=== PATIENT | female | born 1970 | race African-American/Black ===

== ENCOUNTER 2017-01-30 10:24 | Emergency (ER) | payer SELFPAY ==
--- NOTE | 2017-01-30 10:37 | ER Document Report ---
ED Medical Screen (RME) - General Stated Complaint: LEFT SIDE FLANK PAIN Notes: She complains of left-sided abdominal pain for several weeks. Does have nausea , but denies vomiting or diarrhea. No fever. Patient states she has had the same pain before and was worked up by her doctor, with blood work being normal. Pt is diabetic 1, states sugar has been high. I have greeted and performed a rapid initial assessment of this patient. A comprehensive ED assessment and evaluation of the patient, analysis of test results and completion of the medical decision making process will be conducted by additional ED providers. - Related Data Allergies/Adverse Reactions: aspirin Allergy (Verified 01/30/17 10:35) Physical Exam - Vital signs Vitals: Temp Pulse Resp BP Pulse Ox 98.3 F 73 16 140/83 H 98 01/30/17 10:01/30/17 10:01/30/17 10:01/30/17 10:01/30/17 10:29 - Abdominal Bowel sounds: Normal Tenderness: Tender - left side abdomen Course - Vital Signs Vital signs: Temp Pulse Resp BP Pulse Ox 98.3 F 73 16 140/83 H 98 01/30/17 10:29 01/30/17 10:29 01/30/17 10:29 01/30/17 10:29 01/30/17 10:29
[2017-01-30 11:11] LABS: ABSOLUTE BASOPHILS # (AUTO) 0.1 10^3/uL (0.0-0.2); ABSOLUTE EOSINOPHILS # (AUTO) 0.1 10^3/uL (0.0-0.6); ABSOLUTE LYMPHOCYTES (AUTO) 1.7 10^3/uL (0.5-4.7); ABSOLUTE MONOCYTES (AUTO) 0.6 10^3/uL (0.1-1.4); ABSOLUTE NEUT (AUTO) 3.9 10^3/uL (1.7-8.2); EOSINOPHILS % (AUTO) 1.7 % (0-6); HEMOGLOBIN 12.4 g/dL (12.0-15.5); HGB HCT DIFFERENCE 0.2; LYMPHOCYTES % (AUTO) 26.9 % (13-45); MEAN CORPUSCULAR HEMOGLOBIN 26.6 pg (27.0-33.4); MEAN CORPUSCULAR HGB CONC 33.4 g/dL (32.0-36.0); MEAN CORPUSCULAR VOLUME 80 fl (80-97); MONOCYTES % (AUTO) 8.9 % (3-13); RED BLOOD COUNT 4.64 10^6/uL (3.72-5.28); RED CELL DISTRIBUTION WIDTH 13.4 % (11.5-14.0); SEGMENTED NEUTROPHILS % (AUTO) 61.5 % (42-78); WHITE BLOOD COUNT 6.3 10^3/uL (4.0-10.5)
[2017-01-30 11:20] LABS: APPEARANCE,URINE CLOUDY; BILIRUBIN,URINE NEGATIVE (NEGATIVE); GLUCOSE, URINE NEGATIVE (NEGATIVE); KETONES,URINE NEGATIVE (NEGATIVE); LEUKOCYTE ESTERASE,URINE LARGE (NEGATIVE); NITRITE,URINE NEGATIVE (NEGATIVE); PROTEIN,URINE NEGATIVE (NEGATIVE); URINE SPECIFIC GRAVITY 1.021
[2017-01-30 11:31] LABS: ALANINE AMINOTRANSFERASE 32 U/L (9-52); ALBUMIN 4.1 g/dL (3.5-5.0); ALKALINE PHOSPHATASE 88 U/L (38-126); ANION GAP 12 (5-19); ASPARTATE AMINO TRANSFERASE 18 U/L (14-36); BILIRUBIN,DIRECT 0.1 mg/dL (0.0-0.4); BILIRUBIN,TOTAL 0.4 mg/dL (0.2-1.3); BLOOD UREA NITROGEN 12 mg/dL (7-20); CALCIUM 9.6 mg/dL (8.4-10.2); CARBON DIOXIDE 29 mmol/L (22-30); CHLORIDE 103 mmol/L (98-107); CREATININE RESULT 0.74 mg/dL (0.52-1.25); GLUCOSE 190 mg/dL (75-110); LIPASE 143.9 U/L (23-300); POTASSIUM 4.5 mmol/L (3.6-5.0); SODIUM 143.6 mmol/L (137-145)
[2017-01-30] MEDS ORDERED: NORMAL SALINE 1000 ML 1,000 ML IV ONE (11:39)
[2017-01-30 12:06] LABS: ADD ON TESTING BLD IN LAB ACKNOWLEDGE
[2017-01-30] MEDS ORDERED: MAG HYDROX/AL HYDROX/SIMETH SUSP 30 ML UDCUP PO ONE (12:18)
[2017-01-30] MEDS ORDERED: LIDOCAINE 2% VISCOUS SOLN 20 ML UDCUP PO ONE (12:18)
[2017-01-30 12:32] LABS: CREATINE KINASE 104 U/L (30-135)
--- NOTE | 2017-01-30 13:09 | EKG REPORT ---
SEVERITY:- ABNORMAL ECG - SINUS RHYTHM LEFT VENTRICULAR HYPERTROPHY BORDERLINE T ABNORMALITIES, INFERIOR LEADS : Confirmed by: Percy Borrego MD 30-Jan-2017 13:08:32
[2017-01-30] MEDS ORDERED: ONDANSETRON HCL INJ/PF 4 MG/2 ML SDV IV ONE (13:26)
[2017-01-30] MEDS ORDERED: CEFTRIAXONE RTU 1 GM/D5W 50 ML IV ONE (13:27)
--- NOTE | 2017-01-30 13:27 | ER Document Report ---
ED GI/ - General Chief Complaint: Abdominal Pain Stated Complaint: LEFT SIDE FLANK PAIN Mode of Arrival: Ambulatory Information source: Patient Notes: Patient presents reporting a 3 week history of left-sided abdominal pain that radiates to the left flank area. Patient does report some nausea. Patient states that when she lies down at night sometimes she will have epigastric pain that radiates up into her chest. Patient states that when she sits up, her epigastric and chest pain symptoms resolved. Patient denies any urinary symptoms. Patient states that her blood sugar has been at times elevated and other times normal. Patient states [place] and has been having difficulty sticking to her diabetic diet due to lack of restaurant options in this area. Patient denies any cough or shortness of breath. TRAVEL OUTSIDE OF THE [place] IN LAST 30 DAYS: No - HPI Patient complains to provider of: Abdominal pain, Flank pain. No: , Vomiting Onset: Other - 3 weeks Timing/Duration: Persistent Pain Level: 3 Location: Left flank, Other - Left side of abdomen Associated symptoms: Nausea, Urinary frequency. denies: Diarrhea, Dysuria, Fever, Loss of appetite, Urinary hesitancy, Urinary retention, Urinary urgency, Vomiting Exacerbated by: Denies Relieved by: Denies Similar symptoms previously: Yes Recently seen / treated by doctor: No - Related Data Allergies/Adverse Reactions: aspirin Allergy (Verified 01/30/17 10:35) Past Medical History - General Information source: Patient Last Menstrual Period: hysterectomy - Social History Smoking Status: Never Smoker Chew tobacco use (# tins/day): No Frequency of alcohol use: None Drug Abuse: None Lives with: Family Family History: Reviewed & Not Pertinent Patient has suicidal ideation: No Patient has homicidal ideation: No - Past Medical History Cardiac Medical History: Reports: Hx Hypertension Pulmonary Medical History: Reports: Hx Asthma Endocrine Medical History: Reports: Hx Diabetes Mellitus Type 1 Renal/ Medical History: Reports: Hx Kidney Stones. Denies: Hx Peritoneal Dialysis Past Surgical History: Reports: Hx Hysterectomy, Hx Tonsillectomy - Immunizations Hx Diphtheria, Pertussis, Tetanus Vaccination: Yes Review of Systems - Review of Systems Constitutional: No symptoms reported. denies: Fever, Recent illness EENT: No symptoms reported Cardiovascular: Chest pain. denies: Palpitations, Syncope, Dizziness Respiratory: No symptoms reported. denies: Cough, Short of breath Gastrointestinal: Abdominal pain, Nausea. denies: Diarrhea, Vomiting Genitourinary: Frequency, Flank pain. denies: Burning, Dysuria Female Genitourinary: No symptoms reported. denies: Vaginal discharge, Vaginal bleeding Musculoskeletal: Back pain - Left flank area Skin: No symptoms reported Hematologic/Lymphatic: No symptoms reported Neurological/Psychological: No symptoms reported Physical Exam - Vital signs Vitals: Temp Pulse Resp BP Pulse Ox 98.3 F 73 16 140/83 H 98 01/30/17 10:29 01/30/17 10:29 01/30/17 10:29 01/30/17 10:29 01/30/17 10:29 - General General appearance: Appears well, Alert In distress: None Notes: PHYSICAL EXAMINATION: GENERAL: Well-appearing and in no acute distress. Obese. HEAD: Atraumatic, normocephalic. EYES: sclera anicteric, conjunctiva are normal. ENT: nares patent. Moist mucous membranes. NECK: Normal range of motion, supple without lymphadenopathy LUNGS: CTAB and equal. No wheezes rales or rhonchi. HEART: Regular rate and rhythm without murmurs ABDOMEN: Soft, left lower quadrant tenderness, normal bowel sounds, no guarding. EXTREMITIES: Normal range of motion, no pitting edema. No cyanosis. BACK: No midline tenderness, no step-off or deformity. Left CVA tenderness NEUROLOGICAL: Cranial nerves grossly intact. Normal speech. Normal gait. PSYCH: Normal mood, normal affect. SKIN: Warm, Dry, normal turgor, no rashes or lesions noted Course - Re-evaluation Re-evalutation: 01/30/17 11:[address] Rankin regarding patient presentation. Agrees with plan for CT imaging to rule out abdominal pathology 01/30/17 13:26 Patient reports that abdominal pain improves after GI cocktail. Patient does complain of some nausea now. 01/30/17 16:11 Patient's abdomen soft, nontoxic. Patient tolerating po's without pain or vomiting at present. Consulted with Dr. Rankin, discussed results of patient's diagnostic studies. EKG reviewed. Recommends outpatient follow-up with dials inspector. Discussed plan of care with patient, patient verbalized understanding and agrees with plan of care. Patient encouraged to follow-up with dials inspector for further evaluation. Patient also advised that we will place her on some medications to help with what I suspect to be some reflux symptoms as well. - Vital Signs Vital signs: Temp Pulse Resp BP Pulse Ox 98.8 F 68 18 131/77 H 98 01/30/17 16:33 01/30/17 16:33 01/30/17 16:33 01/30/17 16:33 01/30/17 16:33 - Laboratory Result Diagrams: 01/30/17 10:45 01/30/17 10:45 Laboratory results interpreted by me: 01/30/17 01/30/17 01/30/17 10:45 10:45 10:45 MCH 26.6 L Glucose 190 H Urine Urobilinogen 4.0 H Ur Leukocyte Esterase LARGE H 01/30/17 16:13 Labs- Entire Visit 01/30/17 01/30/17 01/30/17 10:45 10:45 10:45 WBC 6.3 RBC 4.64 Hgb 12.4 Hct 37.0 MCV 80 MCH 26.6 L MCHC 33.4 RDW 13.4 Plt Count 341 Seg Neutrophils % 61.5 Lymphocytes % 26.9 Monocytes % 8.9 Eosinophils % 1.7 Basophils % 1.0 Absolute Neutrophils 3.9 Absolute Lymphocytes 1.7 Absolute Monocytes 0.6 Absolute Eosinophils 0.1 Absolute Basophils 0.1 Sodium 143.6 Potassium 4.5 Chloride 103 Carbon Dioxide 29 Anion Gap 12 BUN 12 Creatinine 0.74 Est GFR ( Amer) > 60 Est GFR (Non-Af Amer) > 60 Glucose 190 H Calcium 9.6 Total Bilirubin 0.4 Direct Bilirubin 0.1 Indirect Bilirubin Not Reportable Neonat Total Bilirubin Not Reportable AST 18 ALT 32 Alkaline Phosphatase 88 Creatine Kinase CK-MB (CK-2) Troponin I Total Protein 7.0 Albumin 4.1 Lipase 143.9 Urine Color YELLOW Urine Appearance CLOUDY Urine pH 6.0 Ur Specific [place] 1.021 Urine Protein NEGATIVE Urine Glucose (UA) NEGATIVE Urine Ketones NEGATIVE Urine Blood NEGATIVE Urine Nitrite NEGATIVE Urine Bilirubin NEGATIVE Urine Urobilinogen 4.0 H Ur Leukocyte Esterase LARGE H Urine WBC (Auto) 15 Urine RBC (Auto) 6 Urine Bacteria (Auto) TRACE Squamous Epi Cells Auto 22 Urine Mucus (Auto) RARE Urine Ascorbic Acid NEGATIVE 01/30/17 01/30/17 10:45 14:59 WBC RBC Hgb Hct MCV MCH MCHC RDW Plt Count Seg Neutrophils % Lymphocytes % Monocytes % Eosinophils % Basophils % Absolute Neutrophils Absolute Lymphocytes Absolute Monocytes Absolute Eosinophils Absolute Basophils Sodium Potassium Chloride Carbon Dioxide Anion Gap BUN Creatinine Est GFR ( Amer) Est GFR (Non-Af Amer) Glucose Calcium Total Bilirubin Direct Bilirubin Indirect Bilirubin Neonat Total Bilirubin AST ALT Alkaline Phosphatase Creatine Kinase 104 CK-MB (CK-2) 0.35 Troponin I < 0.012 Total Protein Albumin Lipase Urine Color Urine Appearance Urine pH Ur Specific [place] Urine Protein Urine Glucose (UA) Urine Ketones Urine Blood Urine Nitrite Urine Bilirubin Urine Urobilinogen Ur Leukocyte Esterase Urine WBC (Auto) Urine RBC (Auto) Urine Bacteria (Auto) Squamous Epi Cells Auto Urine Mucus (Auto) Urine Ascorbic Acid 01/30/17 17:50 - Diagnostic Test Radiology reviewed: Reports reviewed Discharge - Discharge Clinical Impression: Elevated blood pressure reading Abdominal pain Qualifiers: Abdominal location: unspecified location Qualified Code(s): R10.9 - Unspecified abdominal pain UTI (urinary tract infection) Qualifiers: Urinary tract infection type: site unspecified Hematuria presence: without hematuria Qualified Code(s): N39.0 - Urinary tract infection, site not specified Condition: Stable Disposition: HOME, SELF-CARE Instructions: Abdominal Pain ([facility]), Urinary Tract Infection ([facility]), Cephalexin ( [facility]), Reflux Disease (GERD) ([facility]) Additional Instructions: Return immediately for any new or worsening symptoms Followup with your primary care provider, call tomorrow to make a followup appointment Follow up with dials inspector for further evaluation, call for an appointment Your blood pressure was mildly elevated today, recheck with primary doctor to have this reevaluated in 2 days. Prescriptions: Cephalexin Monohydrate [Keflex 500 mg Capsule] 500 mg PO BID 5 Days Omeprazole Magnesium [Prilosec Otc] 20 mg PO DAILY #15 tablet. Sucralfate [Carafate 1 gm Tablet] 1 gm PO ACHS #60 tablet Forms: Elevated Blood Pressure Referrals: GLORIA SALAS MD [ACTIVE STAFF] - Follow up in 3-5 days
[2017-01-30 15:32] LABS: CREATINE KINASE MB 0.35 ng/mL (<4.55)
[2017-01-30 15:33] LABS: TROPONIN I < 0.012 ng/mL
[2017-01-30] MEDS ORDERED: IPRATROPIUM/ALBUTEROL 0.5-2.5 MG/3 ML AMPUL NEB ONE (15:48)
[2017-01-30] MEDS ORDERED: RACEPINEPHRINE HCL 2.25% NEB 0.5 ML AMPUL NEB ONE (15:49)
[2017-01-30 16:36] VITALS: BP 131/77
== END 2017-01-30 16:36 | disposition home or self-care (01) ==
LOC: ER 10:24
DX: I10 Essential (primary) hypertension (principal); R10.9 Unspecified abdominal pain; N39.0 Urinary tract infection, site not specified; R11.0 Nausea; E10.9 Type 1 diabetes mellitus without complications; Z88.6 Allergy status to analgesic agent; Z90.710 Acquired absence of both cervix and uterus; Z87.442 Personal history of urinary calculi
CPT/HCPCS: 93005; 99284; 96375; 96365; 36415; 82553; 82550; 83690; 85025; 80053; 81001; 84484; 71020; 76380; 93010; J3490; J2405; J7030; J0696

== ENCOUNTER 2017-12-29 17:11 | Emergency (ER) | payer MEDICAID ==
[2017-12-29] MEDS ORDERED: HYDROCHLOROTHIAZIDE 25 MG TABLET PO ONE (19:12)
[2017-12-29] MEDS ORDERED: LISINOPRIL 10 MG TABLET PO ONE (19:12)
[2017-12-29] MEDS ORDERED: INSULIN GLARGINE,HUM.REC.ANLOG 1,000 UNIT/10 ML UNIT SUBCUT ONE (19:16)
--- NOTE | 2017-12-29 19:17 | ER Document Report ---
ED Medical Screen (RME) - General Chief Complaint: High Blood Sugar Stated Complaint: BLOOD SUGAR PROBLEM Time Seen by Provider: 12/29/17 19:09 Mode of Arrival: Ambulatory Information source: Patient TRAVEL OUTSIDE OF THE [place] IN LAST 30 DAYS: No - HPI Onset: Last week Onset/Duration: Gradual Context: Patient is apparently visiting in [place] from her home in [place], has been here for about a month. She states that she ran out of all her medications 5 days ago and has had none since. She did call someone in [place] to send her her medications by mail, they were supposedly mailed 3 days ago but patient has not received them yet. She admits to increased thirst and increased urination. She also complains of a mild headache. She denies any recent acute illness. Quality of pain: No pain Severity: Moderate Associated Symptoms: Headache, Other - INCREASED THIRST Exacerbated by: Denies Relieved by: Denies Similar symptoms previously: Yes - NOT RECENT Recently seen / treated by doctor: No - Related Data Smoking: Non-smoker Frequency of alcohol use: None Drug Abuse: None Allergies/Adverse Reactions: aspirin Allergy (Verified 12/29/17 17:12) Past Medical History - General Information source: Patient - Social History Cigarette use (# per day): No Frequency of alcohol use: None Drug Abuse: None Lives with: Family Family history: None - Past Medical History Cardiac Medical History: Reports: Hx Hypertension Pulmonary Medical History: Reports: Hx Asthma EENT Medical History: Reports: None Neurological Medical History: Reports: None Endocrine Medical History: Reports: Hx Diabetes Mellitus Type 1, Hx Diabetes Mellitus Type 2 Renal/ Medical History: Reports: Hx Kidney Stones. Denies: Hx Peritoneal Dialysis Malignancy Medical History: Reports: None GI Medical History: Reports: None Psychiatric Medical History: Reports: None Past Surgical History: Reports: Hx Hysterectomy, Hx Tonsillectomy - Immunizations Hx Diphtheria, Pertussis, Tetanus Vaccination: Yes Review of Systems - Review of Systems Constitutional: No symptoms reported. denies: Chills, Fever EENT: No symptoms reported Cardiovascular: No symptoms reported Respiratory: No symptoms reported Gastrointestinal: No symptoms reported Genitourinary: Frequency Female Genitourinary: No symptoms reported Musculoskeletal: No symptoms reported Skin: No symptoms reported Neurological/Psychological: Headaches Physical Exam - Vital signs Vitals: Temp Pulse Resp BP Pulse Ox 98.8 F 68 18 161/88 H 98 02/17/18 17:19 18 17:19 12/29/17 17:19 12/29/17 17:19 12/29/17 17:19 Interpretation: Hypertensive. No: Tachycardic, Tachypneic, Febrile - General General appearance: Appears well, Alert In distress: None - HEENT Head: Normocephalic Eyes: Normal Conjunctiva: Normal Ears: Normal Nasal: Normal Mouth/Lips: Normal Mucous membranes: Normal - Respiratory Respiratory status: No respiratory distress - Cardiovascular Rhythm: Regular - Abdominal Inspection: Normal, Obese - Extremities General upper extremity: Normal inspection General lower extremity: Normal inspection. No: Edema - Neurological Neuro grossly intact: Yes Cognition: Normal Orientation: AAOx4 - Psychological Associated symptoms: Normal affect, Normal mood - Skin Skin Temperature: Warm Skin Moisture: Dry Skin Color: Normal Skin Turgor: Elastic Course - Vital Signs Vital signs: Temp Pulse Resp BP Pulse Ox 98.8 F 68 18 161/88 H 98 12/29/17 17:19 12/29/17 17:19 12/29/17 17:19 12/29/17 17:19 12/29/17 17:19 - Laboratory Laboratory results interpreted by me: 12/29/17 18:30 POC Glucose 369 H
[2017-12-29] MEDS ORDERED: LOSARTAN POTASSIUM 50 MG TABLET PO ONE (19:20)
[2017-12-29 21:29] LABS: ABSOLUTE BASOPHILS # (AUTO) 0.1 10^3/uL (0.0-0.2); ABSOLUTE EOSINOPHILS # (AUTO) 0.1 10^3/uL (0.0-0.6); ABSOLUTE LYMPHOCYTES (AUTO) 2.4 10^3/uL (0.5-4.7); ABSOLUTE MONOCYTES (AUTO) 0.5 10^3/uL (0.1-1.4); ABSOLUTE NEUT (AUTO) 4.8 10^3/uL (1.7-8.2); EOSINOPHILS % (AUTO) 0.7 % (0-6); HEMATOCRIT 39.3 % (36.0-47.0); HEMOGLOBIN 13.3 g/dL (12.0-15.5); LYMPHOCYTES % (AUTO) 30.7 % (13-45); MEAN CORPUSCULAR HEMOGLOBIN 26.8 pg (27.0-33.4); MEAN CORPUSCULAR HGB CONC 33.8 g/dL (32.0-36.0); MEAN CORPUSCULAR VOLUME 79 fl (80-97); MONOCYTES % (AUTO) 6.7 % (3-13); PLATELET COUNT 354 10^3/uL (150-450); RED BLOOD COUNT 4.95 10^6/uL (3.72-5.28); RED CELL DISTRIBUTION WIDTH 13.6 % (11.5-14.0); SEGMENTED NEUTROPHILS % (AUTO) 60.9 % (42-78); TOTAL CELLS COUNTED % (AUTO) 100 %; WHITE BLOOD COUNT 7.9 10^3/uL (4.0-10.5)
--- NOTE | 2017-12-29 21:30 | ER Document Report ---
ED General - General Chief Complaint: High Blood Sugar Stated Complaint: BLOOD SUGAR PROBLEM Time Seen by Provider: 12/29/17 19:09 Mode of Arrival: Ambulatory Information source: Patient TRAVEL OUTSIDE OF THE [place] IN LAST 30 DAYS: No - HPI Notes: 47-year-old lady with past medical history of diabetes as well as hypertension who presented today for evaluation of hyperglycemia. According to patient she ran out of her insulin medications. Patient takes 60 units of glargine at night. Patient is here visiting from [place]. Patient noted to have blood glucose of 350 in triage. Patient denies any nausea, vomiting, abdominal pain, chest pain or shortness of breath. Patient was given 60 units of glargine in triage. - Related Data Allergies/Adverse Reactions: aspirin Allergy (Verified 12/29/17 17:12) Past Medical History - General Information source: Patient - Social History Smoking Status: Never Smoker Cigarette use (# per day): No Frequency of alcohol use: None Drug Abuse: None Lives with: Family Family History: Reviewed & Not Pertinent Patient has suicidal ideation: No Patient has homicidal ideation: No - Past Medical History Cardiac Medical History: Reports: Hx Hypertension Pulmonary Medical History: Reports: Hx Asthma EENT Medical History: Reports: None Neurological Medical History: Reports: None Endocrine Medical History: Reports: Hx Diabetes Mellitus Type 1, Hx Diabetes Mellitus Type 2 Renal/ Medical History: Reports: Hx Kidney Stones. Denies: Hx Peritoneal Dialysis Malignancy Medical History: Reports: None GI Medical History: Reports: None Psychiatric Medical History: Reports: None Past Surgical History: Reports: Hx Hysterectomy, Hx Tonsillectomy - Immunizations Hx Diphtheria, Pertussis, Tetanus Vaccination: Yes Review of Systems - Review of Systems Notes: REVIEW OF SYSTEMS: CONSTITUTIONAL: -fevers, -chills EENT: -eye pain, -difficulty swallowing, -nasal congestion CARDIOVASCULAR: -chest pain, -syncope. RESPIRATORY: -cough, -SOB GASTROINTESTINAL: -abdominal pain, -nausea, -vomiting, -diarrhea GENITOURINARY: -dysuria, -hematuria MUSCULOSKELETAL: -back pain, -neck pain SKIN: -rash or skin lesions. HEMATOLOGIC: -easy bruising or bleeding LYMPHATIC: -swollen, enlarged glands. NEUROLOGICAL: -altered mental status or loss of consciousness, -headache, - neurologic symptoms PSYCHIATRIC: -anxiety, -depression. ALL OTHER SYSTEMS REVIEWED AND NEGATIVE. Physical Exam - Vital signs Vitals: Temp Pulse Resp BP Pulse Ox 98.8 F 68 18 161/88 H 98 12/29/17 17:19 18 17:19 12/29/17 17:19 12/29/17 17:19 12/29/17 17:19 - Notes Notes: Reviewed vital signs and nursing note as charted by RN. CONSTITUTIONAL: Alert and oriented and responds appropriately to questions HEAD: Normocephalic; atraumatic EYES: PERRL; Conjunctivae clear, sclerae non-icteric ENT: normal nose; no rhinorrhea; moist mucous membranes; pharynx without lesions noted NECK: Supple without meningismus; non-tender; no cervical lymphadenopathy, no masses CARD: Regular rate and rhythm; no murmurs, no clicks, no rubs, no gallops; symmetric distal pulses RESP: Normal chest excursion without splinting or tachypnea; breath sounds clear and equal bilaterally ABD/GI: Normal bowel sounds; non-distended; soft, BACK: The back appears normal and is non-tender to palpation EXT: Normal ROM in all joints; non-tender to palpation; no cyanosis, no effusions, no edema SKIN: Normal color for age and race; warm; dry; good turgor; capillary refill < 2 seconds; no acute lesions noted NEURO: .Cranial nerves 3-12 intact. Motor strength 5/5 bilaterally. Sensation intact to touch bilaterally. No pronator drift. Finger to nose intact bilaterally PSYCH: The patient's mood and manner are appropriate. Grooming and personal hygiene are appropriate. Course - Re-evaluation Re-evalutation: 12/29/17 21:00 Patient is here for evaluation of hyperglycemia, out of medications, likely secondary to noncompliance Patient does not have any complaints, glucose 350 today Patient does not have any signs of DKA, low suspicion for metabolic acidosis We will give patient IV fluids Patient was given 60 units of glargine already Reassess 12/30/17 00:50 Repeat glucose 250 Patient feels well, will discharge with her prescription for glargine Patient will have her medications sent to her in 2 days - Vital Signs Vital signs: Temp Pulse Resp BP Pulse Ox 98.8 F 68 18 127/76 H 98 12/29/17 17:19 18 17:19 12/29/17 17:19 12/29/17 21:58 12/29/17 17:19 - Laboratory Result Diagrams: 12/29/17 21:03 12/29/17 21:03 Laboratory results interpreted by me: 12/29/17 12/29/17 12/29/17 18:30 21:03 21:03 MCV 79 L MCH 26.8 L Glucose 342 H POC Glucose 369 H Urine Glucose (UA) Ur Leukocyte Esterase 12/29/17 12/29/17 12/30/17 21:06 21:42 00:25 MCV MCH Glucose POC Glucose 328 H 258 H Urine Glucose (UA) >=500 H Ur Leukocyte Esterase TRACE H Discharge - Discharge Clinical Impression: Hyperglycemia due to type 2 diabetes mellitus Condition: Stable Instructions: Hyperglycemia ([facility]) Prescriptions: Insulin Glargine,Hum.rec.anlog [Dago Flores U-100] 100 unit SQ QHS 30 Days #60 insuln.pen Forms: Elevated Blood Pressure
[2017-12-29 21:39] LABS: APPEARANCE,URINE CLEAR; BILIRUBIN,URINE NEGATIVE (NEGATIVE); COLOR,URINE STRAW; GLUCOSE, URINE >=500 mg/dL (NEGATIVE); KETONES,URINE NEGATIVE (NEGATIVE); LEUKOCYTE ESTERASE,URINE TRACE (NEGATIVE); NITRITE,URINE NEGATIVE (NEGATIVE); PROTEIN,URINE NEGATIVE (NEGATIVE); URINE SPECIFIC GRAVITY 1.023; UROBILINOGEN,URINE NEGATIVE mg/dL (<2.0)
[2017-12-29] MEDS ORDERED: NORMAL SALINE 1000 ML 1,000 ML IV ONE (21:46)
[2017-12-29 21:56] LABS: ALANINE AMINOTRANSFERASE 31 U/L (9-52); ALBUMIN 4.7 g/dL (3.5-5.0); ALKALINE PHOSPHATASE 90 U/L (38-126); ANION GAP 13 (5-19); ASPARTATE AMINO TRANSFERASE 21 U/L (14-36); BILIRUBIN,DIRECT 0.2 mg/dL (0.0-0.4); BILIRUBIN,TOTAL 0.3 mg/dL (0.2-1.3); BLOOD UREA NITROGEN 11 mg/dL (7-20); CALCIUM 10.1 mg/dL (8.4-10.2); CARBON DIOXIDE 25 mmol/L (22-30); CHLORIDE 100 mmol/L (98-107); GLUCOSE 342 mg/dL (75-110); POTASSIUM 4.3 mmol/L (3.6-5.0); TOTAL PROTEIN 7.5 g/dL (6.3-8.2)
[2017-12-29] MEDS ORDERED: ACETAMINOPHEN 325 MG TABLET PO ONE (23:38)
[2017-12-30 01:20] VITALS: BP 122/77
== END 2017-12-30 01:18 | disposition home or self-care (01) ==
LOC: ER 17:11
DX: E11.65 Type 2 diabetes mellitus with hyperglycemia (principal); I10 Essential (primary) hypertension; Z90.710 Acquired absence of both cervix and uterus; Z87.442 Personal history of urinary calculi; Z88.6 Allergy status to analgesic agent; Z79.4 Long term (current) use of insulin
CPT/HCPCS: 99285; 96360; 36415; 82962; 85025; 80053; 81001; J1815; J7030

== ENCOUNTER 2018-05-23 21:42 | Emergency (ER) | payer SELFPAY ==
[2018-05-23 21:57] VITALS: BP 149/84
--- NOTE | 2018-05-23 23:24 | ER Document Report ---
ED Medical Screen (RME) - General Chief Complaint: Abdominal Pain Stated Complaint: ABDOMINAL PAIN Time Seen by Provider: 05/23/18 23:17 Mode of Arrival: Ambulatory Information source: Patient Notes: 48-year-old female presented to ED for complaint of suprapubic pain for the last couple days. She states that she has had some nausea. She states she has discomfort with urination but no burning. She states she has had a hysterectomy. Patient does have suprapubic tenderness. I have greeted and performed a rapid initial assessment of this patient. A comprehensive ED assessment and evaluation of the patient, analysis of test results and completion of medical decision making process will be conducted by an additional ED providers. TRAVEL OUTSIDE OF THE [place] IN LAST 30 DAYS: No - Related Data Allergies/Adverse Reactions: aspirin Allergy (Verified 12/29/17 17:12) Past Medical History - Social History Family history: None - Past Medical History Cardiac Medical History: Reports: Hx Hypertension Pulmonary Medical History: Reports: Hx Asthma Endocrine Medical History: Reports: Hx Diabetes Mellitus Type 1, Hx Diabetes Mellitus Type 2 Renal/ Medical History: Reports: Hx Kidney Stones. Denies: Hx Peritoneal Dialysis Past Surgical History: Reports: Hx Hysterectomy, Hx Tonsillectomy - Immunizations Hx Diphtheria, Pertussis, Tetanus Vaccination: Yes Physical Exam - Vital signs Vitals: Temp Pulse Resp BP Pulse Ox 97.5 F 68 16 149/84 H 100 05/23/18 21:56 05/23/18 21:56 05/23/18 21:56 05/23/18 21:56 05/23/18 21:56 Course - Vital Signs Vital signs: Temp Pulse Resp BP Pulse Ox 97.5 F 68 16 149/84 H 100 05/23/18 21:56 05/23/18 21:56 05/23/18 21:56 05/23/18 21:56 05/23/18 21:56
[2018-05-23 23:42] LABS: APPEARANCE,URINE CLEAR; BILIRUBIN,URINE NEGATIVE (NEGATIVE); COLOR,URINE STRAW; GLUCOSE, URINE >=500 mg/dL (NEGATIVE); KETONES,URINE NEGATIVE (NEGATIVE); LEUKOCYTE ESTERASE,URINE NEGATIVE (NEGATIVE); NITRITE,URINE NEGATIVE (NEGATIVE); PROTEIN,URINE NEGATIVE (NEGATIVE); URINE SPECIFIC GRAVITY 1.032
[2018-05-24] MEDS ORDERED: CEPHALEXIN 500 MG CAPSULE PO ONE (01:57)
--- NOTE | 2018-05-24 01:59 | ER Document Report ---
ED General - General Chief Complaint: Abdominal Pain Stated Complaint: ABDOMINAL PAIN Time Seen by Provider: 05/23/18 23:17 Mode of Arrival: Ambulatory Notes: Patient is a 48 year old female with a past medical history of diabetes and hypertension, surgical history of a partial hysterectomy and tubal ligation who presents with 4 days of suprapubic abdominal pain. She describes this as a dull , throbbing, constant pain. Nothing improves or worsens his pain. She notes associated urinary urgency and mild dysuria. She denies a history of similar symptoms in the past. She denies any associated fever or constitutional symptoms. No nausea, vomiting or diarrhea. She has not contacted her general doctor regarding today's concerns. Symptoms overall unchanged since onset. TRAVEL OUTSIDE OF THE [place] IN LAST 30 DAYS: No - Related Data Allergies/Adverse Reactions: aspirin Allergy (Verified 05/23/18 23:55) lisinopril Allergy (Verified 05/23/18 23:55) Past Medical History - General Information source: Patient - Social History Smoking Status: Never Smoker Chew tobacco use (# tins/day): No Frequency of alcohol use: Occasional Drug Abuse: None Lives with: Family Family History: Reviewed & Not Pertinent Patient has suicidal ideation: No Patient has homicidal ideation: No - Past Medical History Cardiac Medical History: Reports: Hx Hypertension Pulmonary Medical History: Reports: Hx Asthma Endocrine Medical History: Reports: Hx Diabetes Mellitus Type 1, Hx Diabetes Mellitus Type 2 Renal/ Medical History: Reports: Hx Kidney Stones. Denies: Hx Peritoneal Dialysis Past Surgical History: Reports: Hx Abdominal Surgery - hernia, Hx Hysterectomy, Hx Tonsillectomy - Immunizations Hx Diphtheria, Pertussis, Tetanus Vaccination: Yes Review of Systems - Review of Systems Notes: Constitutional: Negative for fever. HENT: Negative for sore throat. Eyes: Negative for visual changes. Cardiovascular: Negative for chest pain. Respiratory: Negative for shortness of breath. Gastrointestinal: Positive for suprapubic abdominal pain Genitourinary: Positive for dysuria. Musculoskeletal: Negative for back pain. Skin: Negative for rash. Neurological: Negative for headaches, weakness or numbness. 10 point ROS negative except as marked above and in HPI. Physical Exam - Vital signs Vitals: Temp Pulse Resp BP Pulse Ox 97.5 F 68 16 149/84 H 100 05/23/18 21:56 05/23/18 21:56 05/23/18 21:56 05/23/18 21:56 05/23/18 21:56 Interpretation: Hypertensive Notes: PHYSICAL EXAMINATION: GENERAL: Well-appearing, well-nourished and in no acute distress. HEAD: Atraumatic, normocephalic. EYES: Pupils equal round and reactive to light, extraocular movements intact, sclera anicteric, conjunctiva are normal. ENT: nares patent, oropharynx clear without exudates. Moist mucous membranes. NECK: Normal range of motion, supple without lymphadenopathy LUNGS: Breath sounds clear to auscultation bilaterally and equal. No wheezes rales or rhonchi. HEART: Regular rate and rhythm without murmurs ABDOMEN: Soft, mild suprapubic abdominal tenderness to palpation no other localized areas of tenderness, normoactive bowel sounds. No guarding, no rebound. No masses appreciated. EXTREMITIES: Normal range of motion, no pitting or edema. No cyanosis. NEUROLOGICAL: No focal neurological deficits. Moves all extremities spontaneously and on command. PSYCH: Normal mood, normal affect. SKIN: Warm, Dry, normal turgor, no rashes or lesions noted. Course - Re-evaluation Re-evalutation: 05/24/18 01:57 Patient presents with complaints of 1 week of suprapubic abdominal discomfort with associated urinary frequent and discomfort with urination. Patient is otherwise very well in appearance, vitals within normal limits. Her abdominal exam is benign without any focal areas of tenderness beyond the suprapubic region. She is status post hysterectomy. She denies any vomiting or diarrhea. Clinical history and exam are not consistent with biliary pathology, acute pancreatitis, mesenteric ischemia, bowel perforation, bowel obstruction, or acute appendicitis. Urinalysis is not entirely consistent with a urinary tract infection and I have discussed this with the patient although her symptoms are consistent with this diagnosis. We are agreeable to avoiding further labs or imaging at this time point but I have emphasized that given the uncertainty of this diagnosis she is to return to the emergency department immediately for any new or worsening symptoms. At this time will discharge with return precautions and follow-up recommendations. Verbal discharge instructions given a the bedside and opportunity for questions given. Medication warnings reviewed. Patient is in agreement with this plan and has verbalized understanding of return precautions and the need for primary care follow-up in the next 24-72 hours. - Vital Signs Vital signs: Temp Pulse Resp BP Pulse Ox 97.5 F 68 16 149/84 H 100 05/23/18 21:56 05/23/18 21:56 05/23/18 21:56 05/23/18 21:56 05/23/18 21:56 - Laboratory Laboratory results interpreted by me: 05/23/18 22:55 Urine Glucose (UA) >=500 H Urine Urobilinogen 2.0 H Discharge - Discharge Clinical Impression: Suprapubic abdominal pain, Urinary urgency Condition: Good Disposition: HOME, SELF-CARE Additional Instructions: Your being treated for a possible urinary tract infection although as we have discussed your urine study is not entirely consistent with this diagnosis. A culture has been sent to verify. Although your being treated with antibiotics, it is very important that you return to the emergency department immediately if you have worsening of your abdominal pain, fever greater than 100.4 F, vomiting , vaginal bleeding, failure of your pain to improve, or any other symptoms that are worrisome to you. Please follow-up closely with your primary care doctor within the next 24-48 hours. Prescriptions: Cephalexin Monohydrate [Keflex 500 mg Capsule] 500 mg PO Q6H 5 Days capsule
== END 2018-05-24 02:09 | disposition home or self-care (01) ==
LOC: ER 21:42
DX: R10.9 Unspecified abdominal pain (principal); R39.15 Urgency of urination; E11.9 Type 2 diabetes mellitus without complications; I10 Essential (primary) hypertension; Z88.6 Allergy status to analgesic agent; Z88.8 Allergy status to other drugs, medicaments and biological substances
CPT/HCPCS: 81001; 87086; 99284

== ENCOUNTER 2018-05-30 13:48 | Emergency (ER) | payer SELFPAY ==
[2018-05-30 13:55] VITALS: BP 134/90
--- NOTE | 2018-05-30 14:03 | ER Document Report ---
HPI - HPI Patient complains to provider of: Itching external rash Onset: Other - Several days after finishing cephalexin for UTI Pain Level: 4 Context: 48-year-old diabetic took cephalexin for a urinary tract infection when she was seen in the emergency department on May 23, 2018. He now has vaginal itching and vulvar itching. she is diabetic and taking her diabetes medication regularly. She states that her glucose has been under better control. Past Medical History - General Information source: Patient - Social History Smoking Status: Unknown if Ever Smoked Frequency of alcohol use: None Drug Abuse: None Lives with: Family Family History: Reviewed & Not Pertinent - Past Medical History Cardiac Medical History: Reports: Hx Hypertension Pulmonary Medical History: Reports: Hx Asthma Endocrine Medical History: Reports: Hx Diabetes Mellitus Type 2 Renal/ Medical History: Reports: Hx Kidney Stones. Denies: Hx Peritoneal Dialysis Past Surgical History: Reports: Hx Abdominal Surgery - hernia, Hx Hysterectomy, Hx Tonsillectomy - Immunizations Hx Diphtheria, Pertussis, Tetanus Vaccination: Yes Vertical Provider Document - CONSTITUTIONAL Agree With Documented VS: Yes Exam Limitations: No Limitations - INFECTION CONTROL TRAVEL OUTSIDE OF THE [place] IN LAST 30 DAYS: No - HEENT HEENT: negative: Pharyngeal Erythema - No pharyngeal used - NECK Neck: Supple. negative: Lymphadenopathy-Left, Lymphadenopathy-Right - RESPIRATORY Respiratory: Breath Sounds Normal, No Respiratory Distress - CARDIOVASCULAR Cardiovascular: Regular Rate, Regular Rhythm - GI/ABDOMEN Gastrointestinal: Abdomen Soft, Abdomen Non-Tender - DERM Integumentary: Rash - Vulvar rash inflammation consistent with yeast Course - Re-evaluation Re-evalutation: 05/30/18 14:57 Urine looks more positive for urinary tract infection today with 1+ bacteria 31 WBCs and 18 RBCs. There is yeast in the urine and the wet prep is not resulted but it definitely looks like a introitus vaginitis which I will treat with Diflucan and topical antifungal cream. I also started her on Macrobid 100 mg twice daily with urine culture pending. 05/30/18 15:03 Yeast on wet prep no trichomonas. 05/30/18 20:35 Patient call back and gonorrhea and chlamydia is negative - Vital Signs Vital signs: Temp Pulse Resp BP Pulse Ox 98.6 F 78 14 134/90 H 99 05/30/18 13:54 05/30/18 13:54 05/30/18 13:54 05/30/18 13:54 05/30/18 13:54 Discharge - Discharge Clinical Impression: Yeast vaginitis, Urinary tract infection Condition: Good Disposition: HOME, SELF-CARE Instructions: Nitrofurantoin ([facility]), Topical Antifungal ([facility]), Urinary Tract Infection ([facility]), Vaginal Yeast Infection ([facility]) Additional Instructions: Topical and intravaginal antifungal cream twice a day Diflucan 150 mg once a repeat in 1 week if the symptoms persist Urine culture is pending Macrobid 100 mg twice a day for a week Return to the emergency room if worse Gonorrhea and Chlamydia test are pending you can call me at [phone] and 3 hours for the result Prescriptions: Fluconazole [Diflucan] 150 mg PO ONCE PRN #2 tablet PRN Reason: Nitrofurantoin Monohyd/M-Cryst [Macrobid 100 mg Capsule] 100 mg PO BID #14 capsule Nystatin/Triamcin [Mycolog-II Cream] 1 applic TP BID #2 tube
[2018-05-30 14:52] LABS: APPEARANCE,URINE CLOUDY; BILIRUBIN,URINE NEGATIVE (NEGATIVE); COLOR,URINE YELLOW; GLUCOSE, URINE >=500 mg/dL (NEGATIVE); KETONES,URINE TRACE mg/dL (NEGATIVE); LEUKOCYTE ESTERASE,URINE LARGE (NEGATIVE); NITRITE,URINE NEGATIVE (NEGATIVE); PROTEIN,URINE NEGATIVE (NEGATIVE); URINE SPECIFIC GRAVITY 1.029
[2018-05-30] MEDS ORDERED: NITROFURANTOIN MONOHYD/M-CRYST 100 MG CAPSULE PO ONE (14:56)
[2018-05-30 15:00] LABS: RBCS (WET MOUNT) RARE RBCS SEEN; T.VAGINALIS (WET MOUNT) NO TRICHOMONAS SEEN; WBCS (WET MOUNT) 2+ WBCS SEEN; YEAST (WET MOUNT) YEAST SEEN
[2018-05-30 16:29] LABS: CHLAM PCR NOT DETECTED (NOT DETECT); GON PCR NOT DETECTED (NOT DETECT)
== END 2018-05-30 15:09 | disposition home or self-care (01) ==
LOC: ER 13:48
DX: B37.3 Candidiasis of vulva and vagina (principal); N39.0 Urinary tract infection, site not specified; E11.9 Type 2 diabetes mellitus without complications; I10 Essential (primary) hypertension; J45.909 Unspecified asthma, uncomplicated; Z79.899 Other long term (current) drug therapy
CPT/HCPCS: 99283; 87086; 87210; 81001; 87491; 87591; J8499

== ENCOUNTER 2018-10-09 17:01 | Emergency (ER) | payer SELFPAY ==
[2018-10-09 17:13] VITALS: BP 142/90
[2018-10-09] MEDS ORDERED: ACETAMINOPHEN 325 MG TABLET PO ONE (18:03)
--- NOTE | 2018-10-09 18:21 | ER Document Report ---
ED General - General Chief Complaint: Chest Pain Stated Complaint: CHEST PAIN Time Seen by Provider: 10/09/18 17:58 Mode of Arrival: Ambulatory Information source: Patient Notes: Chief complaint: Chest pain History of complain:( obtained from----patient) 48 years old female who is type II diabetic, presents today with sternal pain, which is sharp constant with on and off exacerbation on change of position. No left arm numbness tingling sensation nausea vomiting palpitation or diaphoresis. This is been going on for the last 4-5 days. But she has not taken any medications to relieve it. No trauma She had exercise test done which was negative the recent past Onset: As above gradual Duration: 4 days Severity: Moderate Quality: Sharp Context: Unknown Exacerbating factor and relieving factors: Change of position REVIEW OF SYSTEMS: CONSTITUTIONAL : Denies fever, chills, or sweats. Denies recent illness. EENT: Denies eye, ear, throat, or mouth pain or symptoms. Denies nasal or sinus congestion or discharge. Denies throat, tongue, or mouth swelling or difficulty swallowing. CARDIOVASCULAR: Denies chest pain. Denies palpitations or racing or irregular heart beat. Denies ankle edema. RESPIRATORY: Denies cough, cold, or chest congestion. Denies shortness of breath, difficulty breathing, or wheezing. GASTROINTESTINAL: Denies distention. Denies nausea, vomiting, or diarrhea. Denies blood in vomitus, stools, or per rectum. Denies black, tarry stools. Denies constipation. GENITOURINARY: Denies difficulty urinating, painful urination, burning, frequency, blood in urine, or discharge. FEMALE GENITOURINARY: Denies vaginal bleeding, heavy or abnormal periods, irregular periods. Denies vaginal discharge or odor. MUSCULOSKELETAL: Denies back or neck pain or stiffness. Denies joint pain or swelling. SKIN: Denies rash, lesions or sores. HEMATOLOGIC : Denies easy bruising or bleeding. LYMPHATIC: Denies swollen, enlarged glands. NEUROLOGICAL: Denies confusion or altered mental status. Denies passing out or loss of consciousness. Denies dizziness or lightheadedness. Denies headache. Denies weakness or paralysis or loss of use of either side. Denies problems with gait or speech. Denies sensory loss, numbness, or tingling. Denies seizures. PSYCHIATRIC: Denies anxiety or stress. Denies depression, suicidal ideation, or homicidal ideation. She had exercise stress test done ALL OTHER SYSTEMS REVIEWED AND NEGATIVE. PHYSICAL EXAMINATION: GENERAL: Well-appearing, well-nourished and in no acute distress. HEAD: Atraumatic, normocephalic. EYES: Pupils equal round and reactive to light, extraocular movements intact, conjunctiva are normal. ENT: Nares patent, oropharynx clear without exudates. Moist mucous membranes. NECK: Normal range of motion, supple without lymphadenopathy LUNGS: Breath sounds clear to auscultation bilaterally and equal. No wheezes rales or rhonchi. HEART: Regular rate and rhythm without murmurs Chest wall-sharp tenderness noted along the sternocostal region of the lower right and left side. ABDOMEN: Soft, nontender, nondistended abdomen. No guarding, no rebound. No masses appreciated. Examination of genitals-deferred Musculoskeletal: Normal range of motion, no pitting or edema. No cyanosis. NEUROLOGICAL: Cranial nerves grossly intact. Normal speech, normal gait. Normal sensory, motor exams PSYCH: Normal mood, normal affect. SKIN: Warm, Dry, normal turgor, no rashes or lesions noted. Dictation was performed using [employer] voice recognition software TRAVEL OUTSIDE OF THE [place] IN LAST 30 DAYS: No - HPI Notes: Dictated - Related Data Allergies/Adverse Reactions: aspirin Allergy (Verified 10/09/18 17:02) lisinopril Allergy (Verified 10/09/18 17:02) Past Medical History - Social History Smoking Status: Never Smoker Chew tobacco use (# tins/day): No Frequency of alcohol use: Occasional Drug Abuse: None Lives with: Family Family History: Reviewed & Not Pertinent Patient has suicidal ideation: No Patient has homicidal ideation: No - Past Medical History Cardiac Medical History: Reports: Hx Hypertension Pulmonary Medical History: Reports: Hx Asthma Endocrine Medical History: Reports: Hx Diabetes Mellitus Type 1, Hx Diabetes Mellitus Type 2 Renal/ Medical History: Reports: Hx Kidney Stones. Denies: Hx Peritoneal Dialysis Past Surgical History: Reports: Hx Abdominal Surgery - hernia, Hx Hysterectomy, Hx Tonsillectomy - Immunizations Hx Diphtheria, Pertussis, Tetanus Vaccination: Yes Review of Systems - Review of Systems Notes: Dictated Physical Exam - Vital signs Vitals: Temp Pulse Resp BP Pulse Ox 98.1 F 77 14 142/90 H 100 10/09/18 17:12 10/09/18 17:12 10/09/18 17:12 10/09/18 17:12 10/09/18 17:12 - Notes Notes: Dictated Course - Re-evaluation Re-evalutation: 10/09/18 18:19 Was given Tylenol - Vital Signs Vital signs: Temp Pulse Resp BP Pulse Ox 98.1 F 77 14 142/90 H 100 10/09/18 17:12 10/09/18 17:12 10/09/18 17:12 10/09/18 17:12 10/09/18 17:12 - EKG Interpretation by [facility] EKG shows normal: Sinus rhythm - Shows sinus rhythm at the rate of 75 bpm normal axis no acute ST elevation ST depression T wave inversion. Some conduction delays noted over lead III and aVF Discharge - Discharge Clinical Impression: Chest wall pain Condition: Fair Disposition: HOME, SELF-CARE Instructions: Chest Wall Pain ([facility]) Prescriptions: Hydrocodone Bit/Acetaminophen [Hydrocodon-Acetaminophen 5-325] 1 each PO TID # 10 tablet
--- NOTE | 2018-10-09 18:58 | EKG REPORT ---
SEVERITY:- ABNORMAL ECG - SINUS RHYTHM PROBABLE LEFT VENTRICULAR HYPERTROPHY NONSPECIFIC ST-T CHANGES ANTERIOR LEADS : Confirmed by: Percy Borrego MD 09-Oct-2018 18:57:39
== END 2018-10-09 18:24 | disposition home or self-care (01) ==
LOC: ER 17:01
DX: R07.89 Other chest pain (principal); I45.9 Conduction disorder, unspecified; E11.9 Type 2 diabetes mellitus without complications; I10 Essential (primary) hypertension; J45.909 Unspecified asthma, uncomplicated; Z88.6 Allergy status to analgesic agent; Z88.8 Allergy status to other drugs, medicaments and biological substances
CPT/HCPCS: 93005; 93010; 99284

== ENCOUNTER 2018-10-17 16:29 | Emergency (ER) | payer SELFPAY ==
[2018-10-17 16:34] VITALS: BP 143/86
--- NOTE | 2018-10-17 17:25 | ER Document Report ---
ED Blood Sugar Problem - General Chief Complaint: Low Blood Sugar Stated Complaint: BLOOD SUGAR ISSUES Time Seen by Provider: 10/17/18 16:40 Mode of Arrival: Ambulatory Information source: Patient Notes: Chief complaint: Overdose of insulin History of complain:( obtained from----patient) 48 years old female at 12:00 she is supposed to take 2 units of regular insulin instead of 20. Couple of hours later her sugar dropped to around 70, she ate her food. Presented to the ED around 4:00. By the time she came to the ED the sugar went up to 270. She is not feeling any discomfort. Onset: As above Duration: As described above Severity: Mild Quality: Not applicable Context: Exacerbating factor and relieving factors: REVIEW OF SYSTEMS: CONSTITUTIONAL : Denies fever, chills, or sweats. Denies recent illness. EENT: Denies eye, ear, throat, or mouth pain or symptoms. Denies nasal or sinus congestion or discharge. Denies throat, tongue, or mouth swelling or difficulty swallowing. CARDIOVASCULAR: Denies chest pain. Denies palpitations or racing or irregular heart beat. Denies ankle edema. RESPIRATORY: Denies cough, cold, or chest congestion. Denies shortness of breath, difficulty breathing, or wheezing. GASTROINTESTINAL: Denies distention. Denies nausea, vomiting, or diarrhea. Denies blood in vomitus, stools, or per rectum. Denies black, tarry stools. Denies constipation. GENITOURINARY: Denies difficulty urinating, painful urination, burning, frequency, blood in urine, or discharge. FEMALE GENITOURINARY: Denies vaginal bleeding, heavy or abnormal periods, irregular periods. Denies vaginal discharge or odor. MUSCULOSKELETAL: Denies back or neck pain or stiffness. Denies joint pain or swelling. SKIN: Denies rash, lesions or sores. HEMATOLOGIC : Denies easy bruising or bleeding. LYMPHATIC: Denies swollen, enlarged glands. NEUROLOGICAL: Denies confusion or altered mental status. Denies passing out or loss of consciousness. Denies dizziness or lightheadedness. Denies headache. Denies weakness or paralysis or loss of use of either side. Denies problems with gait or speech. Denies sensory loss, numbness, or tingling. Denies seizures. PSYCHIATRIC: Denies anxiety or stress. Denies depression, suicidal ideation, or homicidal ideation. ALL OTHER SYSTEMS REVIEWED AND NEGATIVE. PHYSICAL EXAMINATION: GENERAL: Well-appearing, well-nourished and in no acute distress. HEAD: Atraumatic, normocephalic. EYES: Pupils equal round and reactive to light, extraocular movements intact, conjunctiva are normal. ENT: Nares patent, oropharynx clear without exudates. Moist mucous membranes. NECK: Normal range of motion, supple without lymphadenopathy LUNGS: Breath sounds clear to auscultation bilaterally and equal. No wheezes rales or rhonchi. HEART: Regular rate and rhythm without murmurs ABDOMEN: Soft, nontender, nondistended abdomen. No guarding, no rebound. No masses appreciated. Examination of genitals-deferred Musculoskeletal: Normal range of motion, no pitting or edema. No cyanosis. NEUROLOGICAL: Cranial nerves grossly intact. Normal speech, normal gait. Normal sensory, motor exams PSYCH: Normal mood, normal affect. SKIN: Warm, Dry, normal turgor, no rashes or lesions noted. Dictation was performed using [employer] voice recognition software TRAVEL OUTSIDE OF THE [place] IN LAST 30 DAYS: No - HPI Notes: Dictated - Related Data Allergies/Adverse Reactions: aspirin Allergy (Verified 10/17/18 16:31) lisinopril Allergy (Verified 10/17/18 16:31) Past Medical History - Social History Smoking Status: Never Smoker Frequency of alcohol use: None Drug Abuse: None Lives with: Family Family History: Reviewed & Not Pertinent Patient has suicidal ideation: No Patient has homicidal ideation: No - Past Medical History Cardiac Medical History: Reports: Hx Hypertension Pulmonary Medical History: Reports: Hx Asthma Endocrine Medical History: Reports: Hx Diabetes Mellitus Type 1, Hx Diabetes Mellitus Type 2 Renal/ Medical History: Reports: Hx Kidney Stones. Denies: Hx Peritoneal Dialysis Past Surgical History: Reports: Hx Abdominal Surgery - hernia, Hx Hysterectomy, Hx Tonsillectomy - Immunizations Hx Diphtheria, Pertussis, Tetanus Vaccination: Yes Review of Systems - Review of Systems Notes: Dictated Physical Exam - Vital signs Vitals: Temp Pulse Resp BP Pulse Ox 98.8 F 82 16 143/86 H 100 10/17/18 16:31 1218 16:31 18 16:31 10/17/18 16:31 10/17/18 16:31 - Notes Notes: Dictated Course - Re-evaluation Re-evalutation: 10/17/18 17:25 She was monitored in the ED - Vital Signs Vital signs: Temp Pulse Resp BP Pulse Ox 98.8 F 82 16 143/86 H 100 10/17/18 16:31 10/17/18 16:31 10/17/18 16:31 10/17/18 16:31 10/17/18 16:31 - Laboratory Laboratory results interpreted by me: 10/17/18 16:33 POC Glucose 232 H Discharge - Discharge Clinical Impression: Hypoglycemia secondary to insulin Condition: Fair Instructions: Insulin ([facility])
== END 2018-10-17 17:40 | disposition home or self-care (01) ==
LOC: ER 16:29
DX: E11.649 Type 2 diabetes mellitus with hypoglycemia without coma (principal); Z79.4 Long term (current) use of insulin; I10 Essential (primary) hypertension; E11.9 Type 2 diabetes mellitus without complications; Z87.442 Personal history of urinary calculi; Z90.710 Acquired absence of both cervix and uterus; Z88.6 Allergy status to analgesic agent
CPT/HCPCS: 82962; 99285

== ENCOUNTER 2018-12-18 15:17 | Emergency (ER) | payer SELFPAY ==
--- NOTE | 2018-12-18 19:32 | ER Document Report ---
ED General - General Chief Complaint: Abdominal Pain Stated Complaint: ABDOMINAL/BACK PAIN Time Seen by Provider: 12/18/18 19:16 Primary Care Provider: TAMMY JAMES DO [NO LOCAL MD] - Follow up in 3-5 days (or your primary care. ) Notes: Patient is a 48-year-old female that presents to the emergency department for chief complaint of suprapubic pain, and dysuria. Patient states that she is been having the symptoms over the past 3 days, with lower abdominal and suprapubic pain and discomfort, she states she usually gets the symptoms associated with urinary tract infection versus a yeast infection which he vianneyi leidy gets at the same time. She reports having history of kidney stones, but this pain is not anywhere close to the pain she is had with those. She does have some mild left flank pain, but denies fevers, chills, nausea, vomiting. She currently rates her pain as a 4 out of 10 is a discomfort in the suprapubic region. Denies noting any vaginal discharge that she is aware of, she is had some vaginal itching. Past Medical History: Kidney stones Past Surgical History: Tubal ligation, hysterectomy, hernia repair Social History: Denies tobacco, alcohol or drug use Family History: Reviewed and noncontributory for presenting illness Allergies: Reviewed, see documented allergy list. REVIEW OF SYSTEMS: Other than noted above, the 12 point review of systems was reviewed with the patient and were negative, all pertinent findings are included in the HPI. PHYSICAL EXAMINATION: Vital signs reviewed, nursing noted reviewed. GENERAL: Well-appearing, well-nourished and in no acute distress. HEAD: Atraumatic, normocephalic. EYES: Eyes appear normal, extraocular movements intact, sclera anicteric, conjunctiva are normal. ENT: nares patent, oropharynx clear without exudates. Moist mucous membranes. NECK: Normal range of motion, supple without lymphadenopathy LUNGS: Breath sounds clear to auscultation bilaterally and equal. No wheezes rales or rhonchi. HEART: Regular rate and rhythm without murmurs ABDOMEN: Soft, no CVA tenderness on exam, there was suprapubic tenderness with palpation, normoactive bowel sounds. No rebound, guarding, or rigidity. No masses appreciated. EXTREMITIES: Nontender, good range of motion, no pitting or edema. NEUROLOGICAL: No focal neurological deficits. Moves all extremities spontaneously Motor and sensory grossly intact on exam. PSYCH: Normal mood, normal affect. SKIN: Warm, Dry, normal turgor, no rashes or lesions noted on exposed skin TRAVEL OUTSIDE OF THE [place] IN LAST 30 DAYS: No - Related Data Allergies/Adverse Reactions: aspirin Allergy (Verified 10/17/18 16:31) lisinopril Allergy (Verified 10/17/18 16:31) Past Medical History - Social History Smoking Status: Never Smoker Frequency of alcohol use: Rare Drug Abuse: None Family History: Reviewed & Not Pertinent Patient has suicidal ideation: No Patient has homicidal ideation: No - Past Medical History Cardiac Medical History: Reports: Hx Hypertension Pulmonary Medical History: Reports: Hx Asthma Endocrine Medical History: Reports: Hx Diabetes Mellitus Type 1, Hx Diabetes Mellitus Type 2 Renal/ Medical History: Reports: Hx Kidney Stones. Denies: Hx Peritoneal Dialysis Past Surgical History: Reports: Hx Abdominal Surgery - hernia, Hx Hysterectomy, Hx Tonsillectomy - Immunizations Hx Diphtheria, Pertussis, Tetanus Vaccination: Yes Physical Exam - Vital signs Vitals: Temp Pulse BP Pulse Ox 99.3 F 78 155/93 H 100 12/18/18 15:29 12/18/18 15:29 12/18/18 15:29 12/18/18 15:29 Course - Re-evaluation Re-evalutation: Patient seen and examined, vital signs reviewed, patient did appear well on exam, she was in no acute distress, her abdomen was nonsurgical given this is similar to the patient's prior symptoms, she did have dysuria, and vaginal itching, we will treat her for urinary tract infection, her prior cultures were reviewed, she has not grown urological pathogens in the past, but has had a yeast, will give her a dose of Keflex here today, and give her 5 days worth of Keflex, as well as Pyridium, and given a prescription for Diflucan to take after completing antibiotics given her history of yeast infections after antibiotic therapy. Patient agreeable plan of care and advised to return if symptoms worsen. - Vital Signs Vital signs: Temp Pulse Resp BP Pulse Ox 98.0 F 61 16 162/63 H 100 12/18/18 19:45 12/18/18 19:45 12/18/18 19:45 12/18/18 19:45 02/06/19 15:29 - Laboratory Laboratory results interpreted by me: 12/18/18 17:05 Urine Glucose (UA) >=500 H Urine Urobilinogen 4.0 H Ur Leukocyte Esterase SMALL H Discharge - Discharge Clinical Impression: Vaginal candidiasis UTI (urinary tract infection) Qualifiers: Urinary tract infection type: site unspecified Hematuria presence: without hematuria Qualified Code(s): N39.0 - Urinary tract infection, site not specified Condition: Stable Disposition: HOME, SELF-CARE Instructions: Urinary Tract Infection ([facility]), Vaginal Yeast Infection ([facility]) Additional Instructions: Please take the diflucan after completing the course of antibiotics. If your symptoms worsen, do not hesitate to return to the emergency department. Prescriptions: Cephalexin Monohydrate [Keflex 500 mg Capsule] 500 mg PO BID 5 Days #10 capsule Fluconazole [Diflucan] 150 mg PO ONCE PRN #1 tablet PRN Reason: Phenazopyridine HCl [Pyridium 200 mg Tablet] 200 mg PO TID #9 tablet Referrals: TAMMY JAMES DO [NO LOCAL MD] - Follow up in 3-5 days (or your primary care. )
[2018-12-18] MEDS ORDERED: CEPHALEXIN 500 MG CAPSULE PO ONE (19:33)
[2018-12-18] MEDS ORDERED: PHENAZOPYRIDINE HCL 200 MG TABLET PO ONE (19:33)
[2018-12-18 19:44] LABS: APPEARANCE,URINE CLEAR; BILIRUBIN,URINE NEGATIVE (NEGATIVE); COLOR,URINE YELLOW; GLUCOSE, URINE >=500 mg/dL (NEGATIVE); KETONES,URINE NEGATIVE (NEGATIVE); LEUKOCYTE ESTERASE,URINE SMALL (NEGATIVE); NITRITE,URINE NEGATIVE (NEGATIVE); PROTEIN,URINE NEGATIVE (NEGATIVE); URINE SPECIFIC GRAVITY 1.035
[2018-12-18 19:47] VITALS: BP 162/63
== END 2018-12-18 19:45 | disposition home or self-care (01) ==
LOC: ER 15:17
DX: B37.3 Candidiasis of vulva and vagina (principal); N39.0 Urinary tract infection, site not specified; R10.9 Unspecified abdominal pain; M54.9 Dorsalgia, unspecified; R10.30 Lower abdominal pain, unspecified; R30.0 Dysuria; I10 Essential (primary) hypertension; J45.909 Unspecified asthma, uncomplicated; E11.9 Type 2 diabetes mellitus without complications
CPT/HCPCS: 99283; 87086; 87088; 81001; J3490

== ENCOUNTER 2018-12-25 12:47 | Emergency (ER) | payer SELFPAY ==
--- NOTE | 2018-12-25 14:12 | ER Document Report ---
ED Medical Screen (RME) - General Chief Complaint: Abdominal Pain Stated Complaint: ABDOMINAL PAIN Time Seen by Provider: 12/25/18 14:10 Notes: 48 years old female who was seen here a few days ago started on antibiotic for UTI presents with a bloody stool since yesterday. Not every stool but on and off. Bright red blood. Denies any rectal pain or denies any history of hemorrhoids. Denies any abdominal pain. TRAVEL OUTSIDE OF THE [place] IN LAST 30 DAYS: No - Related Data Allergies/Adverse Reactions: aspirin Allergy (Verified 12/25/18 12:49) lisinopril Allergy (Verified 12/25/18 12:49) Past Medical History - Social History Chew tobacco use (# tins/day): No Frequency of alcohol use: Occasional Drug Abuse: None Family history: None - Past Medical History Cardiac Medical History: Reports: Hx Hypertension Pulmonary Medical History: Reports: Hx Asthma Endocrine Medical History: Reports: Hx Diabetes Mellitus Type 1, Hx Diabetes Mellitus Type 2 Renal/ Medical History: Reports: Hx Kidney Stones. Denies: Hx Peritoneal Dialysis Past Surgical History: Reports: Hx Abdominal Surgery - hernia, Hx Hysterectomy, Hx Tonsillectomy - Immunizations Hx Diphtheria, Pertussis, Tetanus Vaccination: Yes Physical Exam - Vital signs Vitals: Temp Pulse Resp BP Pulse Ox 98.8 F 60 14 160/87 H 98 12/25/18 13:00 12/25/18 13:00 12/25/18 13:00 12/25/18 13:00 12/25/18 13:00 Course - Vital Signs Vital signs: Temp Pulse Resp BP Pulse Ox 98.8 F 60 14 160/87 H 98 12/25/18 13:00 12/25/18 13:00 12/25/18 13:00 12/25/18 13:00 12/25/18 13:00
[2018-12-25 15:24] LABS: ABSOLUTE EOSINOPHILS # (AUTO) 0.1 10^3/uL (0.0-0.6); ABSOLUTE LYMPHOCYTES (AUTO) 1.9 10^3/uL (0.5-4.7); ABSOLUTE MONOCYTES (AUTO) 0.5 10^3/uL (0.1-1.4); ABSOLUTE NEUT (AUTO) 4.1 10^3/uL (1.7-8.2); BASOPHILS % (AUTO) 0.4 % (0-2); EOSINOPHILS % (AUTO) 1.5 % (0-6); HEMATOCRIT 37.6 % (36.0-47.0); HEMOGLOBIN 12.8 g/dL (12.0-15.5); LYMPHOCYTES % (AUTO) 28.9 % (13-45); MEAN CORPUSCULAR HEMOGLOBIN 26.7 pg (27.0-33.4); MEAN CORPUSCULAR VOLUME 79 fl (80-97); MONOCYTES % (AUTO) 6.9 % (3-13); PLATELET COUNT 345 10^3/uL (150-450); RED BLOOD COUNT 4.78 10^6/uL (3.72-5.28); RED CELL DISTRIBUTION WIDTH 13.9 % (11.5-14.0); SEGMENTED NEUTROPHILS % (AUTO) 62.3 % (42-78); TOTAL CELLS COUNTED % (AUTO) 100 %; WHITE BLOOD COUNT 6.6 10^3/uL (4.0-10.5)
[2018-12-25 15:30] LABS: ALANINE AMINOTRANSFERASE 48 U/L (9-52); ALBUMIN 4.4 g/dL (3.5-5.0); ALKALINE PHOSPHATASE 102 U/L (38-126); ANION GAP 10 (5-19); ASPARTATE AMINO TRANSFERASE 32 U/L (14-36); BILIRUBIN,DIRECT 0.2 mg/dL (0.0-0.4); BILIRUBIN,TOTAL 0.4 mg/dL (0.2-1.3); BLOOD UREA NITROGEN 7 mg/dL (7-20); CALCIUM 9.5 mg/dL (8.4-10.2); CARBON DIOXIDE 28 mmol/L (22-30); CHLORIDE 102 mmol/L (98-107); GLUCOSE 275 mg/dL (75-110); POTASSIUM 4.1 mmol/L (3.6-5.0); TOTAL PROTEIN 7.2 g/dL (6.3-8.2)
--- NOTE | 2018-12-25 15:58 | ER Document Report ---
ED General - General Chief Complaint: Abdominal Pain Stated Complaint: ABDOMINAL PAIN Time Seen by Provider: 12/25/18 14:10 Mode of Arrival: Ambulatory TRAVEL OUTSIDE OF THE [place] IN LAST 30 DAYS: No - HPI Patient complains to provider of: Loose stools, blood in stool, nausea Onset: Yesterday Onset/Duration: Intermittent Quality of pain: Cramping Severity: Severe Pain Level: 4 Associated symptoms: denies: Chills, Fever Exacerbated by: Denies Relieved by: Denies Similar symptoms previously: No Recently seen / treated by doctor: No Notes: Patient is a 48-year-old -[place] female coming in today with chief complaint of some loose stools for the past couple of days. This morning was on the toilet several times having loose bowel movements. She reports the last couple of bowel movements had some blood in them. She has also had some nausea over the past couple of days but is not been vomiting. She has no fevers or shaking chills. She reports that she is just finished a course of Keflex for a urinary tract infection. Also took a dose of Diflucan at the conclusion of her antibiotic therapy. - Related Data Allergies/Adverse Reactions: aspirin Allergy (Verified 12/25/18 12:49) lisinopril Allergy (Verified 12/25/18 12:49) Past Medical History - General Information source: Patient - Social History Smoking Status: Never Smoker Chew tobacco use (# tins/day): No Frequency of alcohol use: Occasional Drug Abuse: None Family History: Reviewed & Not Pertinent Patient has suicidal ideation: No Patient has homicidal ideation: No - Past Medical History Cardiac Medical History: Reports: Hx Hypertension Pulmonary Medical History: Reports: Hx Asthma Endocrine Medical History: Reports: Hx Diabetes Mellitus Type 1, Hx Diabetes Mellitus Type 2 Renal/ Medical History: Reports: Hx Kidney Stones. Denies: Hx Peritoneal Dialysis Past Surgical History: Reports: Hx Abdominal Surgery - hernia, Hx Hysterectomy, Hx Tonsillectomy - Immunizations Hx Diphtheria, Pertussis, Tetanus Vaccination: Yes Review of Systems - Review of Systems Notes: Constitutional: No fevers. No chills. EENT: No eye redness. No eye pain. No ear pain. No sore throat. Cardiovascular: No chest pain. No palpitations. Respiratory: No cough. No shortness of breath. No respiratory distress. Gastrointestinal: Abdominal cramping, loose stools, blood in stool Genitourinary: Atraumatic. No lesions. No pain. No discharge. Musculoskeletal: Atraumatic. No swelling. No deformities. Skin: No rash or lesions. Lymphatic: No swollen lymph nodes. Neurologic: No headache. No syncope. Psychiatric: No suicidal or homicidal ideation. Physical Exam - Vital signs Vitals: Temp Pulse Resp BP Pulse Ox 98.8 F 60 14 160/87 H 98 12/25/18 13:00 12/25/18 13:00 12/25/18 13:00 12/25/18 13:00 12/25/18 13:00 - Notes Notes: General: Well-developed, well-nourished. In no acute distress. Non-toxic appearing. Cardiac: Well-perfused. Regular rate and rhythm. No murmurs, rubs, or gallops. Pulmonary: No respiratory distress. No cyanosis. Bilateral lung fiels are clear to auscultation. Abdominal: Non-distended. Non-rigid. Bowels sounds are present in all four quadrants. No guarding or rebound. Chaperoned by PCT. Small hemorrhoids. Guaiac-negative HEENT: Head is atraumatic. Conjunctivae not reddened. No tearing. PERRL. EOMI. Orbits atraumatic. No periorbital swelling or erythema. Oropharynx is without erythema, swelling, or exudates. Neck: Supple. No adenopathy. No meningismus. Dermatologic: Warm with good turgor. No rash. Atraumatic. Chest: Atraumatic. No chest wall tenderness to palpation. Musculoskeletal: Moves all extremities well. No range of motion deficits. no muscular or joint tenderness. No paraspinal muscle tenderness. no midline spinal tenderness or step-off. Genitourinary: Examination deferred Neurologic: No gross neurologic deficits. Psychiatric: Normal mood. Course - Re-evaluation Re-evalutation: 12/25/18 15:59 Patient's abdominal exam is pretty benign. No blood on the fecal guaiac. No history of fevers or shaking chills or vomiting. I suspect the patient probably has mild case of gastroenteritis or possibly a little bit of colitis possibly exacerbated by recent antibiotic use. Or he may get some lab work and make sure that she does not have a raging white count and make sure that her H&H is stable. At the moment I do not think the patient needs any radiographic studies. 12/25/18 18:10 Patient continues to have a UTI despite recent treatment on Keflex. Also has hyperglycemia consistent with her diabetes. Her stool guaiac was negative. Patient does not receive medical care in this area. She has insurance in [facility] and she plans to be there on Sunday. I will go ahead and treat her with some ciprofloxacin for 7 days to treat the urinary infection, Zofran for nausea, and Bentyl as needed for intestinal cramping - Vital Signs Vital signs: Temp Pulse Resp BP Pulse Ox 98.8 F 60 14 160/87 H 98 12/25/18 13:00 12/25/18 13:00 12/25/18 13:00 12/25/18 13:00 12/25/18 13:00 - Laboratory Result Diagrams: 12/25/18 14:40 12/25/18 14:40 Laboratory results interpreted by me: 12/25/18 12/25/18 12/25/18 14:40 14:40 17:16 MCV 79 L MCH 26.7 L Glucose 275 H Urine Glucose (UA) >=500 H Urine Blood MODERATE H Ur Leukocyte Esterase LARGE H Discharge - Discharge Clinical Impression: Colitis, Hyperglycemia UTI (urinary tract infection) Qualifiers: Urinary tract infection type: site unspecified Hematuria presence: without hematuria Qualified Code(s): N39.0 - Urinary tract infection, site not specified Disposition: HOME, SELF-CARE Instructions: Antispasmodics ([facility]), Abdominal Pain ([facility]), Urinary Tract Infection ([facility]), Colitis, Nonspecific ([facility]) Prescriptions: Dicyclomine HCl [Bentyl 10 mg Capsule] 10 mg PO Q6HP PRN #20 capsule PRN Reason: Ondansetron [Zofran Odt 4 mg Tablet] 1 tab PO Q6HP PRN #10 tab.rapdis PRN Reason: For Nausea/Vomiting Ciprofloxacin HCl [Cipro 500 mg Tablet] 500 mg PO BID #14 tablet Referrals: doc in [place], your [Other] - Follow up as needed
[2018-12-25] MEDS ORDERED: OXYCODONE-ACETAMINOPHEN 5-325 MG TABLET PO ONE (16:19)
[2018-12-25 17:42] LABS: APPEARANCE,URINE CLOUDY; BILIRUBIN,URINE NEGATIVE (NEGATIVE); COLOR,URINE YELLOW; GLUCOSE, URINE >=500 mg/dL (NEGATIVE); KETONES,URINE NEGATIVE (NEGATIVE); LEUKOCYTE ESTERASE,URINE LARGE (NEGATIVE); NITRITE,URINE NEGATIVE (NEGATIVE); PROTEIN,URINE NEGATIVE (NEGATIVE); URINE SPECIFIC GRAVITY 1.009; UROBILINOGEN,URINE NEGATIVE mg/dL (<2.0)
[2018-12-25 17:59] LABS: CHLAM PCR NOT DETECTED (NOT DETECT); GON PCR NOT DETECTED (NOT DETECT)
[2018-12-25 18:16] VITALS: BP 149/75
== END 2018-12-25 18:22 | disposition home or self-care (01) ==
LOC: ER 12:47
DX: K52.9 Noninfective gastroenteritis and colitis, unspecified (principal); N39.0 Urinary tract infection, site not specified; E11.65 Type 2 diabetes mellitus with hyperglycemia; R10.9 Unspecified abdominal pain; R11.0 Nausea; I10 Essential (primary) hypertension; J45.909 Unspecified asthma, uncomplicated
CPT/HCPCS: 36415; 80053; 81001; 85025; 87491; 87591; 99284

== ENCOUNTER 2019-01-06 03:49 | Emergency (ER) | payer SELFPAY ==
[2019-01-06 06:04] LABS: APPEARANCE,URINE SLIGHTLY-CLOUDY; BILIRUBIN,URINE NEGATIVE (NEGATIVE); COLOR,URINE STRAW; GLUCOSE, URINE >=500 mg/dL (NEGATIVE); KETONES,URINE TRACE mg/dL (NEGATIVE); LEUKOCYTE ESTERASE,URINE TRACE (NEGATIVE); NITRITE,URINE NEGATIVE (NEGATIVE); PROTEIN,URINE NEGATIVE (NEGATIVE); URINE SPECIFIC GRAVITY 1.032; UROBILINOGEN,URINE NEGATIVE mg/dL (<2.0)
[2019-01-06] MEDS ORDERED: FLUCONAZOLE 100 MG TABLET PO ONE (07:39)
[2019-01-06 07:45] VITALS: BP 140/96
--- NOTE | 2019-01-06 07:48 | ER Document Report ---
ED General - General Chief Complaint: Vaginal Pain Stated Complaint: VAGINAL PROBLEM Time Seen by Provider: 01/06/19 06:10 TRAVEL OUTSIDE OF THE [place] IN LAST 30 DAYS: No - HPI Notes: Patient presents to the emergency department for evaluation. She states she believes she may have a yeast infection. She has had burning and itching, both externally and internally. She has recently been treated with an antibiotic for urinary tract infection. She admits to me that her glucose has been out of control, but will not give me specific numbers. She also admits that she has not been taking her blood pressure medication as she ran out of it. She has an appoint with her primary care physician to have this refilled. She denies any vaginal discharge. The burning she is experiences aggravated by urination. She does have some frequency but has been attributed this to her elevated sugars. She denies any monica hematuria. No fevers or chills, no nausea or vomiting. - Related Data Allergies/Adverse Reactions: aspirin Allergy (Verified 01/06/19 05:32) lisinopril Allergy (Verified 01/06/19 05:32) Past Medical History - General Information source: Patient - Social History Smoking Status: Former Smoker Frequency of alcohol use: Occasional Drug Abuse: None Family History: Reviewed & Not Pertinent Patient has suicidal ideation: No Patient has homicidal ideation: No - Past Medical History Cardiac Medical History: Reports: Hx Hypertension Pulmonary Medical History: Reports: Hx Asthma Endocrine Medical History: Reports: Hx Diabetes Mellitus Type 1, Hx Diabetes Mellitus Type 2 Renal/ Medical History: Reports: Hx Kidney Stones. Denies: Hx Peritoneal Dialysis Past Surgical History: Reports: Hx Abdominal Surgery - hernia, Hx Hysterectomy, Hx Tonsillectomy - Immunizations Hx Diphtheria, Pertussis, Tetanus Vaccination: Yes Review of Systems - Review of Systems Constitutional: No symptoms reported EENT: No symptoms reported Cardiovascular: No symptoms reported Respiratory: No symptoms reported Gastrointestinal: No symptoms reported Genitourinary: See HPI Female Genitourinary: See HPI Musculoskeletal: No symptoms reported Skin: No symptoms reported Neurological/Psychological: No symptoms reported Physical Exam - Vital signs Vitals: Temp Pulse Resp BP Pulse Ox 98.2 F 77 16 162/107 H 100 01/06/19 04:01 01/06/19 04:01 01/06/19 04:01 01/06/19 04:01 01/06/19 04:01 Interpretation: Hypertensive - Notes Notes: Vital signs reviewed, please refer to chart. Patient is normocephalic, atr aumatic. Pupils equal round, reactive to light. Neck is supple without meningismus. Heart is regular rate and rhythm. Lungs are clear to auscultation bilaterally. Abdomen is soft, nontender, normoactive bowel sounds throughout. Extremities without cyanosis, clubbing, edema. Peripheral pulses are equal. Skin is warm and dry. Patient is awake, alert, neurological exam is nonfocal. External genitalia shows mild erythema on the labia minora. Speculum exam is performed. Evaluation for discharge is limited by the fact that the patient did use a antifungal suppository in her vagina earlier today. Cervix is closed, no cervical motion tenderness. Specimens obtained. Course - Re-evaluation Re-evalutation: 01/06/19 07:46 Patient presents emergency department for evaluation. Her symptoms are most consistent with a probable vaginal candidiasis. I told her that she would continue to have issues like this as long as her sugars are not controlled. She is only taken 1 dose of the [id number] 5-day treatment. She was given a dose of Diflucan here. I told her to continue the suppositories and external cream as instructed. She voiced understanding to this. Urinalysis was reviewed and does not seem consistent with UTI. She is to follow-up with her primary care physician. We did discuss the need for her to control her blood pressure better. She states she will continue her medications as prescribed. She is to return to the emergency department with worsening or new concerning symptoms of any sort. - Vital Signs Vital signs: Temp Pulse Resp BP Pulse Ox 98.2 F 77 16 162/107 H 100 01/06/19 04:01 01/06/19 04:01 01/06/19 04:01 01/06/19 04:01 01/06/19 04:01 - Laboratory Laboratory results interpreted by me: 01/06/19 05:27 Urine Glucose (UA) >=500 H Urine Ketones TRACE H Ur Leukocyte Esterase TRACE H Discharge - Discharge Clinical Impression: Vaginal candidiasis, Hypertension Condition: Stable Disposition: HOME, SELF-CARE Instructions: Vaginal Yeast Infection ([facility]) Additional Instructions: Continue the [id number] treatment that you have begun for your yeast infection. Stay well-hydrated. Try to control your sugar. Be sure to fill your blood pressure medications and take them as directed. Follow-up with your primary care physician in 1-2 weeks. Return to the emergency department with worsening or new concerning symptoms. Forms: Elevated Blood Pressure
[2019-01-06 07:57] LABS: RBCS (WET MOUNT) FEW RBCS SEEN; T.VAGINALIS (WET MOUNT) NO TRICHOMONAS SEEN; WBCS (WET MOUNT) FEW WBCS SEEN; YEAST (WET MOUNT) NO YEAST SEEN
[2019-01-06 09:30] LABS: CHLAM PCR NOT DETECTED (NOT DETECT); GON PCR NOT DETECTED (NOT DETECT)
== END 2019-01-06 07:56 | disposition home or self-care (01) ==
LOC: ER 03:49
DX: B37.3 Candidiasis of vulva and vagina (principal); I10 Essential (primary) hypertension; R10.2 Pelvic and perineal pain; R35.0 Frequency of micturition; Z87.891 Personal history of nicotine dependence; J45.909 Unspecified asthma, uncomplicated; E11.9 Type 2 diabetes mellitus without complications
CPT/HCPCS: 81001; 81025; 87210; 87491; 87591; 99283